=== PATIENT | female | born 2000 | race Hispanic/Latino ===

== ENCOUNTER 2023-06-02 11:07 | Outpatient (CLI) | payer BC, SELFPAY ==
--- NOTE | ~2023-06-02 | XR_ITS ---
EXAM: XR thoracic spine 3V DATE: 06/02/2023 11:29 HISTORY: SCOLIOSIS OF THORACIC SPINE;LBP . COMPARISON: None available. FINDINGS: The cervicothoracic junction is partially obscured in the lateral view. Mild spinal asymmet ry. Vertebral body alignment intact. Vertebral body heights preserved. No disc space narrowing. No tr aumatic malalignment or fracture. Visualized lung parenchyma is clear. IMPRESSION: Normal thoracic spine radiograph findings. Reviewed, dictated and finalized at location K.
--- NOTE | ~2023-06-02 | XR_ITS ---
EXAM: XR lumbar spine 2-3V DATE: 06/02/2023 11:29 HISTORY: SCOLIOSIS OF THORACIC SPINE;LBP BACK RT ARM PAIN . COMPARISON: None available. FINDINGS: 5 nonrib-bearing lumbar-type vertebral bodies. Pedicles intact. Normal vertebral body alig nment. Vertebral body heights preserved. Mild disc space narrowing at L2-3, L4-5, and L5-S1. Normal f acets and posterior elements. No fracture or dislocation. IMPRESSION: Mild multilevel lumbar degenerative disc disease. Reviewed, dictated and finalized at location K.
== END 2023-06-02 11:08 | disposition home or self-care (01) ==
PROVIDERS: PCP Registered Nurse; Visit Provider Registered Nurse
DX: M41.85 Other forms of scoliosis, thoracolumbar region (principal); M51.36 Other intervertebral disc degeneration, lumbar region
CPT/HCPCS: 72072; 72100